=== PATIENT | female | born 1985 | race Caucasian/White ===

== ENCOUNTER 2016-07-18 09:47 | Day surgery (SDC) | payer BC, OTHER ==
[2016-07-17 08:55] VITALS: BMI 43.0
[~2016-07-18] VITALS: Ht 152.4 cm; Wt 100.9 kg
[~2016-07-18 09:47] MED LIST: DEXAMETHASONE SOD INJ 4 MG/ML VIAL ONE; FENTANYL CITRATE INJ 50 MCG/1 ML 2 ML VIAL ONE; LACTATED RINGER'S 1000ML 1,000 ML IV SCH; LIDOCAINE HCL 2% 2 ML VIAL (20MG/ML) ONE; MIDAZOLAM HCL 1 MG/ML 2ML VIAL ONE; ONDANSETRON INJ 2 MG/ML 2 ML VIAL ONE; PROPOFOL IV EMULSION 10 MG/ML 20 ML VIAL IV ONE; ROCURONIUM BROMIDE 10 MG/ML 5 ML VIAL ONE
[2016-07-18] MEDS ORDERED: IBUP-1050 PO (10:09)
[2016-07-18 10:10] VITALS: BP 132/72; PULSE 77; TEMP 37.1; O2SAT 97; Ht 152.4 cm; Wt 100.9 kg
[2016-07-18 10:50] LABS: PREG INTERNAL NEGATIVE QC NEG CLEAR BACKGROUND; PREG INTERNAL POSITIVE QC POS CONTROL LINE
--- NOTE | 2016-07-18 11:02 | History & Physical Bridge Note ---
H&P Re-Evaluation Bridge Note: I have examined the patient, reviewed the History & Physical and in the interval since the performance of the History & Physical I have noted the following changes of clinical significance: No changes noted
[2016-07-18] MEDS ORDERED: CEFAZOLIN SOD 1 GM VIAL ONE (11:19)
[2016-07-18] MEDS ORDERED: PROPOFOL IV EMULSION 10 MG/ML 20 ML VIAL IV ONE (11:28)
[2016-07-18] MEDS ORDERED: ATROPINE SULFATE 0.1 MG/ML 5ML SYR IV PRN (11:45)
[2016-07-18] MEDS ORDERED: ONDANSETRON INJ 2 MG/ML 2 ML VIAL IV PRN (11:45)
[2016-07-18] MEDS ORDERED: NEOSTIGMINE METHYLSULFATE 5 MG/5 ML SYR ONE (11:50)
[2016-07-18] MEDS ORDERED: GLYCOPYRROLATE INJ 0.2 MG/ML VIAL ONE (11:50)
[2016-07-18] MEDS ORDERED: ALBUTEROL HFA INHALER 8.5 GM INH ONE (11:59)
--- NOTE | 2016-07-18 12:05 | Discharge Instructions ---
Discharge Instructions Visit Reason for Visit: Mediastinal Adenopathy Discharge Discharge Diagnosis / Problem: Mediastinal Adenopathy Discharge Goals Goal(s): Learn about illness Activity Recommendations Activity Limitations: resume your previous activity (in 24 hours) Shower/Bathe: may shower/bathe in [address] if taking Ultram Anesthesia . Post Anesthesia Instructions: If you have had General Anesthesia or IV Sedation: * Do not drive today. * Resume driving when surgeon permits. * Do not make important decisions or sign legal documents today. * Call surgeon for: 1. Temperature elevations greater than 101 degrees F. 2. Uncontrollable pain. 3. Excessive bleeding. 4. Persistent nausea and vomiting. 5. Medication intolerance (nausea, vomiting or rash). * For nausea and vomiting use only clear liquids such as: tea, soda, bouillon until nausea subsides, then gradually increase diet as tolerated. * If you have any concerns or questions, call your surgeon's office. If physician is unavailable and it is an emergency, call 911 or go to the nearest emergency room. . Instructions / Follow-Up Instructions / Follow-Up 1. You may remove dressing in 3 days and then shower. No tub baths 2. keep your scheduled appointment with Dr. Coto on July 25 @ 9:30 Diet Recommendations Recommended Home Diet: resume previous diet Pending Studies Studies pending at discharge: no Medical Emergencies . Who to Call and When: Medical Emergencies: If at any time you feel your situation is an emergency, please call 911 immediately. . Non-Emergent Contact Non-Emergency issues call your: Surgeon Call Non-Emergent contact if: temperature is above 100.5, your pain is not controlled, wound has increased drainage, wound has increased redness . . "Provider Documentation" section prepared by Syed Ko.
[2016-07-18] MEDS ORDERED: TRAM-10 PO (12:08)
[2016-07-18] MEDS ORDERED: FENTANYL CITRATE INJ 50 MCG/1 ML 2 ML VIAL ONE (12:13)
[2016-07-18] MEDS: FENTANYL CITRATE INJ 50 MCG/1 ML 2 ML VIAL IV PRN ×6 (12:16→12:50)
--- NOTE | 2016-07-18 12:27 | DIAGNOSTIC IMAGING REPORT ---
CHEST ONE VIEW PORTABLE CLINICAL HISTORY: s/p mediastinoscopy COMPARISON STUDY: CT scan dated 06/23/2016 FINDINGS: There are bilateral patchy airspace opacities. No pneumothorax is visualized. The heart is normal in size. There are no pleural effusions.[ IMPRESSION: Multifocal patchy airspace opacities. No pneumothorax identified. Electronically signed by: Gianni Palacios M.D. 07/18/2016 12:25 PM
--- NOTE | 2016-07-18 13:03 | Anesthesiology Progress Note ---
Anesthesia Post Op Note Date & Time Jul 18, 2016 at 13:02 Vital Signs Pain Intensity: 4 Vital Signs Past 12 Hours Date Time Temp Pulse Resp B/P Pulse Ox O2 Delivery O2 Flow Rate FiO2 07/18/16 12:40 69 17 116/62 96 Room Air 07/18/16 12:30 71 15 110/60 98 Mask 10 07/18/16 12:20 74 22 117/69 100 Mask 10 07/18/16 12:10 36.3 82 16 129/71 100 Mask 10 07/18/16 10:10 37.1 77 20 132/72 97 Room Air Notes Mental Status: alert / awake / arousable, participated in evaluation Pt Amnestic to Procedure: Yes Nausea / Vomiting: adequately controlled Pain: adequately controlled Airway Patency, RR, SpO2: stable & adequate BP & HR: stable & adequate Hydration State: stable & adequate Anesthetic Complications: no major complications apparent
[2016-07-18 13:15] VITALS: BP 112/63; PULSE 63; TEMP 36.6; O2SAT 94
[2016-07-18 13:41] VITALS: BP 101/53; PULSE 66; O2SAT 96
[2016-07-18] MEDS ORDERED: NURSING VERBAL MED ORDER ONE (13:45)
[2016-07-18] MEDS ORDERED: OXYCODONE/ACETAMINOPHEN 5-325 TAB ONE (13:57)
[2016-07-18 14:20] VITALS: BP 104/52; PULSE 69; TEMP 36.6; O2SAT 94
[2016-07-18 15:00] VITALS: BP 127/62; PULSE 73; O2SAT 96
--- NOTE | 2016-07-18 15:06 | OPERATIVE REPORT ---
DATE OF OPERATION: 07/18/2016 PREOPERATIVE DIAGNOSIS: Mediastinal and hilar adenopathy. POSTOPERATIVE DIAGNOSIS: Nonnecrotizing granulomas mediastinal lymph nodes. PROCEDURE: Video mediastinoscopy with biopsy. SURGEON: Dr. Coto. PEDIATRIC CLINICAL NURSE SPECIALIST: Syed PICKENS. ANESTHESIA: General anesthesia endotracheal intubation using a single lumen tube. SPECIFICS OF PROCEDURE AND FINDINGS: This 31-year-old female who is followed by Dr. Haley who has marked mediastinal adenopathy. She was referred to me for evaluation for diagnosis. We had a long talk in the office last week and I do not feel that a fine needle aspiration is appropriate in a patient who has possible lymphoma versus granulomatous disease. For this reason, we elected to proceed with a video mediastinoscopy. One 07/18/2016 the patient underwent an uncomplicated video mediastinoscopy. I biopsied the right level 2, and right level [address] Danilo Cali feels this is probably consistent with sarcoidosis with a non-necrotizing granulomas present. We also sent off samples for culture. She tolerated it well with negligible blood loss. I did not dissect out the left side of the peritracheal area at all. DESCRIPTION OF PROCEDURE: The patient was brought to the operating room and placed in the supine position. General anesthesia induced and endotracheal intubation was performed. The patient's neck was extended and the anterior cervical neck was prepped and draped in the usual sterile fashion. About 1 fingerbreadth above the sternal notch I made a transverse incision less than 2 cm in length. Sharp and blunt dissection where used to dissect down to the strap muscles, which were divided in the midline. Pretracheal plane was developed bluntly and the video mediastinoscope was placed. I used the cautery to dissect down and came upon a large right level 2 and level 4 node. I took a large bite x2 with the level 4 node and sent this off for frozen section. Bleeding was controlled with cautery. I came back and took a much larger portion of the right level 2 node, which was very big. Again, bleeding was controlled with cautery. Frozen section of level 4 node came back as non-necrotizing granulomas. I then slowly removed the scope. The patient tolerated it quite well. We had really very little in the way of bleeding. The strap muscles were then reapproximated using 3-0 Vicryl. The skin was then closed in a subcuticular fashion using 3-0 Vicryl in a running fashion. Antimicrobial dressing was placed. She tolerated it very well. I attest to the content of the Intraoperative Record and any orders documented therein. Any exceptio ns are noted below.
== END 2016-07-18 15:15 | disposition home or self-care (01) ==
LOC: C.ACU 09:47
PROVIDERS: ATTEND Surgery
DX: D86.1 Sarcoidosis of lymph nodes (principal); R59.9 Enlarged lymph nodes, unspecified; Z87.891 Personal history of nicotine dependence

== ENCOUNTER → 2017-08-01 | Outpatient (CLI) | payer BC ==
[~2017-08-01] MED LIST changes: -DEXAMETHASONE SOD INJ 4 MG/ML VIAL ONE; -FENTANYL CITRATE INJ 50 MCG/1 ML 2 ML VIAL ONE; +IBUP-1050 PO; -LACTATED RINGER'S 1000ML 1,000 ML IV SCH; -LIDOCAINE HCL 2% 2 ML VIAL (20MG/ML) ONE; -MIDAZOLAM HCL 1 MG/ML 2ML VIAL ONE; -ONDANSETRON INJ 2 MG/ML 2 ML VIAL ONE; -PROPOFOL IV EMULSION 10 MG/ML 20 ML VIAL IV ONE; -ROCURONIUM BROMIDE 10 MG/ML 5 ML VIAL ONE
--- NOTE | 2017-08-01 08:57 | DIAGNOSTIC IMAGING REPORT ---
CHEST 2 VIEWS ROUTINE CLINICAL HISTORY: D86.0 Sarcoidosis of [id number] COMPARISON STUDY: 07/18/2016 FINDINGS: The cardiac and mediastinal contours are normal. There is no evidence of focal pulmonary consolidation. There is no evidence of failure. No pleural effusions are visualized.[There is been interval resolution of the previously identified patchy bilateral airspace opacities. IMPRESSION: No active disease in the chest. Electronically signed by: Gianni Palacios M.D. 08/01/2017 8:56 AM Dictated Date/Time: 08/01/2017 8:55 AM
== END | disposition home or self-care (01) ==
LOC: C.RAD1850 08:40
PROVIDERS: ATTEND Physician Assistant
DX: D86.0 Sarcoidosis of lung (principal)